=== PATIENT | female | born 1990 | race African-American/Black ===

== ENCOUNTER 2016-10-20 13:22 | Emergency (ER) | payer MEDICAID, OTHER ==
[~2016-10-20] VITALS: Ht 172.7 cm; Wt 127.0 kg
[2016-10-20 13:32] VITALS: BP 131/67
[2016-10-20] MEDS ORDERED: KETOROLAC TROMETH 60MG/2ML VIAL IM ONE (15:30)
== END 2016-10-20 16:37 | disposition home or self-care (01) ==
LOC: ER 13:32
DX: S83.8X2A Sprain of other specified parts of left knee, initial encounter (principal); S76.012A Strain of muscle, fascia and tendon of left hip, initial encounter; S90.812A Abrasion, left foot, initial encounter; W01.0XXA Fall on same level from slipping, tripping and stumbling without subsequent striking against object, initial encounter; Y93.01 Activity, walking, marching and hiking; Y99.8 Other external cause status; Y92.89 Other specified places as the place of occurrence of the external cause
CPT/HCPCS: 73562; 73630; 96372; 99284; J1885